=== PATIENT | male | born 1970 | race Caucasian/White ===

== ENCOUNTER → 2022-10-15 09:35 | Outpatient (BNVA) | payer OTHER, SELFPAY | PROVIDERS: PCP Internal Medicine; Visit Provider Psychiatry & Neurology Neurology | DX: Z13.89 Encounter for screening for other disorder (principal) ==

== ENCOUNTER 2022-10-21 08:49 | Outpatient (REF) | payer OTHER, SELFPAY ==
--- NOTE | ~2022-10-21 | US_ITS ---
EXAMINATION: US EXTRACRANIAL CAROTID DUPLEX, BILATERAL CLINICAL INFORMATION: Anesthesia, syncope, abnormal MRI. COMPARISON: None available. TECHNIQUE: Real-time ultrasound and Doppler techniques (integrating B-mode 2-D vascular images, Doppler spectral analysis and color-flow Doppler imaging) were utilized to interrogate the extracranial carotid arteries, the vertebral arteries and proximal subclavian arteries bilaterally. The degree of stenosis is determined by criteria similar to NASCET. FINDINGS: Right Side: 1. There is normal atherosclerotic plaque seen in the bifurcation/proximal ICA region. 2. The common carotid artery PSV proximally is 129 cm/s and distally 101 cm/s. 3. The proximal internal carotid artery velocities are 72 cm/s systolic and 24 cm/s diastolic. 4. The proximal external carotid artery PSV is 93 cm/s. 5. The vertebral artery shows antegrade flow. 6. The subclavian artery waveforms are normal. Left Side: 1. There is normal atherosclerotic plaque seen in the bifurcation/proximal ICA region. 2. The common carotid artery PSV proximally is 118 cm/s and distally 123 cm/s. 3. The proximal internal carotid artery velocities are 69 cm/s systolic and 17 cm/s diastolic. 4. The proximal external carotid artery PSV is 93 cm/s. 5. The vertebral artery shows antegrade flow. 6. The subclavian artery waveforms are normal. US/US carotid duplex BI IMPRESSION: 1. RIGHT: Normal right internal carotid artery without atherosclerotic plaque or hemodynamically significant stenosis. 2. LEFT: Normal left internal carotid artery without atherosclerotic plaque or hemodynamically significant stenosis.
== END 2022-10-21 08:50 | disposition home or self-care (01) ==
LOC: HO.HMGCX 08:49
PROVIDERS: PCP Internal Medicine; Visit Provider Psychiatry & Neurology Neurology
DX: R41.3 Other amnesia (principal); R90.82 White matter disease, unspecified
CPT/HCPCS: 93880

== ENCOUNTER 2022-10-28 07:17 | Outpatient (REF) | payer OTHER, SELFPAY ==
--- NOTE | ~2022-10-28 | MR_ITS ---
EXAMINATION: MR BRAIN WITHOUT CONTRAST CLINICAL INFORMATION: Other amnesia. COMPARISON: Brain MRI 09/22/2017. TECHNIQUE: Multiplanar, multisequence imaging of the brain was performed without intravenous contrast. FINDINGS: There is no acute infarction, hemorrhage, mass, or extra-axial fluid collection. There is redemonstration of extensive patchy and partly confluent T2/FLAIR hyperintensity throughout the bilateral periventricular, deep, and juxtacortical cerebral white matter. There is volume loss associated with the T2/FLAIR signal changes in the left frontotemporal and parietal regions but is unchanged compared with the prior study. No definite progressive signal abnormality is seen. The ventricles and sulci are normal in size and configuration without hydrocephalus. There is encephalomalacia and gliosis involving the bilateral parasagittal anterior inferior frontal lobes without change. The major arterial flow voids are preserved at the skull base. There is possible aneurysm involving the basilar apex. The extracranial structures are within normal limits. MR/MR head/brain wo con IMPRESSION: No acute abnormality. No mass or significant change compared with 09/22/2017. Redemonstration of nonspecific extensive T2/FLAIR signal changes throughout the bilateral cerebral hemispheres. Encephalomalacic and gliotic changes in the bilateral paramedian anterior inferior frontal lobes and in the left frontotemporal and parietal regions is again demonstrated, presumably related to prior trauma. Possible aneurysm is seen involving the basilar apex. Dedicated head MRA without contrast or head CTA with contrast is recommended to further evaluate this incidental finding.
== END 2022-10-28 07:18 | disposition home or self-care (01) ==
LOC: HO.MRI 07:17
PROVIDERS: PCP Internal Medicine; Visit Provider Psychiatry & Neurology Neurology
DX: R41.3 Other amnesia (principal); Z86.69 Personal history of other diseases of the nervous system and sense organs
CPT/HCPCS: 70551

== ENCOUNTER → 2022-12-02 13:26 | Outpatient (REF) | payer OTHER, SELFPAY | LOC: HO.SL 13:26 | PROVIDERS: PCP Internal Medicine; Visit Provider Psychiatry & Neurology Neurology | DX: G47.33 Obstructive sleep apnea (adult) (pediatric) (principal); G47.10 Hypersomnia, unspecified; R06.83 Snoring | CPT/HCPCS: 95806 ==

== ENCOUNTER → 2023-01-16 21:27 | Outpatient (REF) | payer OTHER, SELFPAY | LOC: HO.SL 21:27 | PROVIDERS: PCP Internal Medicine; Visit Provider Nurse Practitioner Family | DX: G47.33 Obstructive sleep apnea (adult) (pediatric) (principal) | CPT/HCPCS: 95811 ==

== ENCOUNTER → 2023-01-16 21:45 | Outpatient (BNV) | payer OTHER, SELFPAY | PROVIDERS: PCP Internal Medicine; Visit Provider Psychiatry & Neurology Neurology | DX: G47.33 Obstructive sleep apnea (adult) (pediatric) (principal) | CPT/HCPCS: 95811 ==

== ENCOUNTER 2023-01-30 18:06 | Outpatient (REF) | payer OTHER, SELFPAY ==
--- NOTE | ~2023-01-30 | MR_ITS ---
MR ANGIOGRAPHY BRAIN WITHOUT IV CONTRAST CLINICAL INFORMATION: Aneurysm of the pre-cerebral arteries. COMPARISON: Brain MRI 10/28/2022. TECHNIQUE: A noncontrast [id number] MRA of the head is obtained. Vascular post-processing, including 2-dimensional and 3-dimensional reformatted images were created and reviewed on an independent workstation under concurrent physician supervision. Stenoses are graded per criteria similar to NASCET. FINDINGS: There is no aneurysm. The tortuous basilar artery and proximal P1 segments extending to the interpedicular fossa explaining the previous MRI findings. MR/MR angio head wo con IMPRESSION: Unremarkable MRA of the head. No aneurysms. Previous basilar artery tip finding was due to vascular tortuosity.
== END 2023-01-30 18:07 | disposition home or self-care (01) ==
LOC: HO.MRI 18:06
PROVIDERS: PCP Internal Medicine; Visit Provider Psychiatry & Neurology Neurology
DX: I72.5 Aneurysm of other precerebral arteries (principal)
CPT/HCPCS: 70544

== ENCOUNTER 2023-05-08 14:59 | Outpatient (AMB) | payer OTHER, SELFPAY ==
--- NOTE | 2023-05-08 15:12 | MHC.OFFVIS ---
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 Language: Macedonian Allergies No Known Allergies Allergy (Verified 10/15/22 09:44) Medication List - Last Reconciled 05/08/23 by Tiffanie Pro MD acetaminophen 500 mg PO Q6H PRN calcium carbonate (Calcium) 600 mg PO DAILY cetirizine (All Day Allergy (cetirizine)) 10 mg PO DAILY PRN cholecalciferol (vitamin D3) 50 mcg PO DAILY dextromethorphan polistirex ER (Robitussin ER) 10 mL PO Q12H levocarnitine 250 mg PO DAILY simethicone (Gas-X Extra Strength) 125 mg PO BID-QID PRN HPI HPI Comments History of Present Illness Details 51y/o right handed male comes for follow up His MRA brain ruled out aneurysm.He had a repeat sleep study and titration study and has CPAP . He is compliant but topete strouble using when he has allergies and cough. 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 He also had intracranial bleed as per his ( i dont have reports ).The bleed self resolved. No seizures at that time . The etiology of syncope was not determined. Now he works at [employer] - in the [employer] department. He denies any further syncopal episodes, denies significant memory issues or headaches. He denies weakness or numbness. [facility] Medical History Abnormal MRI Hypersomnia Snoring Memory change Congenital hydrocephalus Compression fracture of body of thoracic vertebra Lateral meniscal tear Learning disability SAH (subarachnoid hemorrhage) Syncope GERD (gastroesophageal reflux disease) Obstructive sleep apnea Osteoporosis Gastritis Diverticulosis Head injury Surgical History H/O esophagogastroduodenoscopy H/O colonoscopy Family History Mother Alzheimer disease Father HTN (hypertension) Sister Breast cancer Social History Alcohol intake: never Patient Tobacco Use Status: Never used Tobacco Physical Exam Vital Signs: Last Vital Signs Pulse 82 05/08/23 15:17 BP 122/70 05/08/23 15:17 BMI result Body Mass Index 30.2 Const General: cooperative, healthy appearing and comfortable Nutritional Appearance: average body habitus Orientation/consciousness: patient oriented x3 Neck Neck: Yes no meningeal signs Neuro General: patient oriented x3, gait normal, tone normal, moves all extremities, no meningeal signs and no focal motor deficits Cranial nerves: Yes Facial sensation intact/muscles of mastication intact, Yes Nystagmus not present, Yes Normal facial strength present and Yes Midline tongue present Gait exam (Neuro): Normal gait present Motor exam (neuro): 5/5 motor strength present throughout and Normal motor muscle tone present throughout Coordination: [id number] test normal Assessment & Plan Assessment & Plan (1) Obstructive sleep apnea: Comment: Severe degree of sleep apnea. The AHI was 38/hr and oxygen dangelo was 79% Code(s): G47.33 - Obstructive sleep apnea (adult) (pediatric) Plan MRA results discussed- no evidence of sneurysm Compliance discussed. He has difficulty because of nasal congestion . 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
[2023-05-08 15:17] VITALS: BP 122/70; PULSE 82; BMI 30.2
== END 2023-05-08 15:39 | disposition home or self-care (01) ==
PROVIDERS: Visit Provider Psychiatry & Neurology Neurology
DX: G47.33 Obstructive sleep apnea (adult) (pediatric) (principal)
CPT/HCPCS: 99214

== ENCOUNTER → 2023-05-08 14:59 | Outpatient (BNVA) | payer OTHER, SELFPAY | PROVIDERS: Visit Provider Psychiatry & Neurology Neurology | DX: I72.5 Aneurysm of other precerebral arteries (principal) ==